=== PATIENT | female | born 1985 | race Caucasian/White ===

== ENCOUNTER → 2018-06-10 | Outpatient (CLI) | payer OTHER ==
[~2018-06-10] MED LIST: CYCL10 PO; DOCU100 PO; FERR325 PO; Naprosyn500 MG PO; Verotin-Gr Cap1 EACH PO
[2018-06-13 04:06] LABS: CHLAMYDIA TRACHOMATIS, NAA Negative (Negative); NEISSERIA GONORRHOEAE, NAA Negative (Negative)
[2018-06-14 15:07] LABS: HPV 16 Negative (Negative); HPV 18 Negative (Negative); HPV OTHER HR TYPES Negative (Negative)
== END ==
LOC: LAB SHORT 11:44 → LAB 11:44
PROVIDERS: Registered Nurse Community Health
DX: Z12.4 Encounter for screening for malignant neoplasm of cervix (principal); Z11.3 Encounter for screening for infections with a predominantly sexual mode of transmission; N89.8 Other specified noninflammatory disorders of vagina
CPT/HCPCS: 87070; 87106; 87205; 87491; 87591; 87625; G0123

== ENCOUNTER → 2018-12-28 | Outpatient (CLI) | payer OTHER ==
[~2018-12-28] MED LIST changes: +IBUP800 PO; +PRENATAL TABLE1 EAC2 PO
== END ==
LOC: LAB 15:15 → LAB SHORT 15:15
DX: Z34.93 Encounter for supervision of normal pregnancy, unspecified, third trimester (principal)
CPT/HCPCS: 87081; 87653

== ENCOUNTER 2019-01-18 05:00 | Inpatient (IN) | payer OTHER ==
[~2019-01-18] VITALS: Ht 157.5 cm; Wt 74.5 kg
[~2019-01-18 05:00] MED LIST changes: -IBUP800 PO; -PRENATAL TABLE1 EAC2 PO
[2019-01-18] MEDS ORDERED: PRENATAL TABLE1 EAC2 PO (05:24)
[2019-01-18 06:08] LABS: BASOPHILS ABSOLUTE AUTO 0.02 K/mm3 (0.00-0.23); BASOPHILS PERCENT AUTO 0 % (0-2); EOSINOPHILS ABSOLUTE AUTO 0.14 K/mm3 (0.00-0.68); EOSINOPHILS PERCENT AUTO 2 % (0-6); Hemoglobin 11.6 g/dL (11.5-16.0); IMMATURE GRAN ABSOLUTE AUTO 0.07 K/mm3 (0.00-0.10); IMMATURE GRAN PERCENT AUTO 1 % (0-1); LYMPHOCYTES ABSOLUTE AUTO 1.68 K/mm3 (0.84-5.20); LYMPHOCYTES PERCENT AUTO 19 % (21-46); MONOCYTES ABSOLUTE AUTO 0.67 K/mm3 (0.16-1.47); MONOCYTES PERCENT AUTO 8 % (4-13); Mean Corpuscular HGB 26.7 pg (26.0-34.0); Mean Corpuscular HGB Conc 32.2 g/dL (31.5-36.5); Mean Corpuscular Volume 83 fL (80-100); Mean Platelet Volume 11.6 fL (9.1-12.4); NEUTROPHILS ABSOLUTE AUTO 6.23 K/mm3 (1.96-9.15); NEUTROPHILS PERCENT AUTO 71 % (41-73); Platelet Count 218 K/mm3 (150-400); RDW Coefficient Variation 14.7 % (11.7-14.2); RDW Standard Deviation 43.2 fL (35.1-46.3); Red Blood Cell Count 4.34 M/mm3 (3.80-5.20); White Blood Cell Count 8.81 K/mm3 (4.00-11.30)
--- NOTE | 2019-01-18 08:00 | NUR ---
ASSUMED CARE AT 0715. PT IN ROOM AWAITING DENNY SIMPSON TO COME TO BREAK WATER. PT'S SO MOM IN ROOM, "LEIGH ANN". PT'S SO NAME IS GRETCHEN, HE IS HOME WITH THIER 4 YEAR OLD SON. THIS GESTATION IS COMPLICATED BY FOCAL MOSIAC TRISOMY 7. PT ALSO HAD A TAB IN 2012 FOR TRISOMY 18.
--- NOTE | 2019-01-18 09:45 | NUR ---
CONSULT. SHE IS IN LABOR, HAS QUESTIONS ABOUT MILK SUPPLY. LAST BABY IT TOOK OVER 2 WEEKS FOR HER SUPPLY TO COME IN WELL AND SHE HAS ACCESSORY GLANDS UP INTO BOTH AXILLA, WHICH DO DRAIN WITH BF. INSTRUCT THAT THE AXILLA AREA WILL PROBABLY FILL WITH MILK AGAIN, EACH IS DIFFERENT ON HOW THE MILK COMES IN AND HOW MUCH SUPPLY. THE MORE THE BREASTS ARE STIMULATED, THE GREATER THE CHANCE OF MILK IN SOONER AND IN GREATER SUPPLY. TO TRY AND HAVE BABY BF SOON AFTER , PREFERRABLY ABOUT AN HOUR. TO START PUMPING PC FOR 15 MINUTES AFTER THAT FOR ADDED STIMULATION. PLANS TO BRING PUMP FROM HOME, HAS A SPECTRA.
--- NOTE | 2019-01-18 11:21 | NUR ---
KIMI IN TO DISCUSS PLAN OF BRF. PT HAS ACCESSORY MAMMARY GLADS IN BILATERAL [place]. PT REPORTS NOT GETTING MILK IN FOR 10-14 DAYS. PLAN TO PUMP Q3-4 HOURS FOR 15 MIN AFTER FEEDING NB FOR SIMULATION TO GET MILK PRODUCTION GOING. ACCESSORY GLANDS DID PRODUCE MILK, AND ARE CONNECTED TO BREAST TISSUE PER PT, IF SHE PUMPED THEM ENGORGEMENT WENT DONE WELL. PARRISH BOLDEN RN ROUNDED AND MADE A PLAN WITH THE PT.
--- NOTE | 2019-01-18 18:56 | NUR ---
REPORT TO ONCOMING SHIFT, PT STILL IN BED, NOT UP YET. CONT TO [facility]F NB. CNM ASKED THAT 2 RNS IN ROOM WHEN PT UPT SHOWER.
[2019-01-19 05:33] LABS: BASOPHILS ABSOLUTE AUTO 0.01 K/mm3 (0.00-0.23); BASOPHILS PERCENT AUTO 0 % (0-2); EOSINOPHILS ABSOLUTE AUTO 0.15 K/mm3 (0.00-0.68); EOSINOPHILS PERCENT AUTO 1 % (0-6); Hematocrit 30.8 % (33.0-51.0); IMMATURE GRAN PERCENT AUTO 1 % (0-1); LYMPHOCYTES ABSOLUTE AUTO 1.55 K/mm3 (0.84-5.20); LYMPHOCYTES PERCENT AUTO 13 % (21-46); MONOCYTES ABSOLUTE AUTO 0.91 K/mm3 (0.16-1.47); MONOCYTES PERCENT AUTO 7 % (4-13); Mean Corpuscular HGB 27.6 pg (26.0-34.0); Mean Corpuscular HGB Conc 32.5 g/dL (31.5-36.5); Mean Corpuscular Volume 85 fL (80-100); Mean Platelet Volume 11.1 fL (9.1-12.4); NEUTROPHILS ABSOLUTE AUTO 9.66 K/mm3 (1.96-9.15); NEUTROPHILS PERCENT AUTO 78 % (41-73); Platelet Count 178 K/mm3 (150-400); RDW Coefficient Variation 14.9 % (11.7-14.2); RDW Standard Deviation 45.1 fL (35.1-46.3); Red Blood Cell Count 3.62 M/mm3 (3.80-5.20); White Blood Cell Count 12.38 K/mm3 (4.00-11.30)
[2019-01-19] MEDS ORDERED: IBUP800 PO (10:06)
--- NOTE | 2019-01-19 18:40 | NUR ---
DISCHARGE INSTRUCTIONS REVIEWED WITH MOTHER OF BABY. MOM VERBALIZED UNDERSTANDING, DENIES ANY QUESTIONS OR CONCERNS. VSS. BANDS MATCHED. BABY DISCHARGED HOME WITH MOM.
== END 2019-01-19 18:40 | disposition home or self-care (01) | DRG 807 ==
LOC: BC 05:00
PROVIDERS: ADMIT Registered Nurse Community Health
PROC: 10E0XZZ Delivery of Products of Conception, External Approach (ICD-10-PCS; principal; 2019-01-18)
PROC: 10907ZC Drainage of Amniotic Fluid, Therapeutic from Products of Conception, Via Natural or Artificial Opening (ICD-10-PCS; 2019-01-18)
DX: O35.1XX0 Maternal care for (suspected) chromosomal abnormality in fetus, not applicable or unspecified (principal); Z37.0 Single live birth; Z3A.39 39 weeks gestation of pregnancy
CPT/HCPCS: 36415; 51702; 85025; J1885; J2210; J2590; J3010; J7120

== ENCOUNTER → 2019-06-20 | Outpatient (CLI) | payer OTHER ==
[~2019-06-20] MED LIST changes: +IBUP800 PO; +PRENATAL TABLE1 EAC2 PO
[2019-06-20 14:57] LABS: BASOPHILS ABSOLUTE AUTO 0.02 K/mm3 (0.00-0.23); BASOPHILS PERCENT AUTO 0 % (0-2); EOSINOPHILS ABSOLUTE AUTO 0.33 K/mm3 (0.00-0.68); EOSINOPHILS PERCENT AUTO 6 % (0-6); Hematocrit 40.8 % (33.0-51.0); Hemoglobin 13.3 g/dL (11.5-16.0); IMMATURE GRAN PERCENT AUTO 0 % (0-1); LYMPHOCYTES ABSOLUTE AUTO 1.54 K/mm3 (0.84-5.20); LYMPHOCYTES PERCENT AUTO 29 % (21-46); MONOCYTES ABSOLUTE AUTO 0.35 K/mm3 (0.16-1.47); MONOCYTES PERCENT AUTO 7 % (4-13); Mean Corpuscular HGB 28.7 pg (26.0-34.0); Mean Corpuscular HGB Conc 32.6 g/dL (31.5-36.5); Mean Corpuscular Volume 88 fL (80-100); NEUTROPHILS ABSOLUTE AUTO 3.13 K/mm3 (1.96-9.15); NEUTROPHILS PERCENT AUTO 58 % (41-73); Platelet Count 216 K/mm3 (150-400); Red Blood Cell Count 4.64 M/mm3 (3.80-5.20); White Blood Cell Count 5.37 K/mm3 (4.00-11.30)
== END ==
LOC: LAB SHORT 13:17 → LAB 13:17
PROVIDERS: Registered Nurse Community Health
DX: J30.2 Other seasonal allergic rhinitis (principal); J31.1 Chronic nasopharyngitis; R51 Headache
CPT/HCPCS: 85025

== ENCOUNTER → 2020-07-09 | Outpatient (CLI) | payer OTHER ==
[2020-07-11 09:09] LABS: HPV 16 Negative (Negative); HPV 18 Negative (Negative); HPV OTHER HR TYPES Negative (Negative)
== END ==
LOC: LAB SHORT 09:40 → LAB 09:40
PROVIDERS: Family Medicine
DX: Z01.419 Encounter for gynecological examination (general) (routine) without abnormal findings (principal)
CPT/HCPCS: 87624; G0145

== ENCOUNTER → 2020-12-25 | Outpatient (CLI) | payer OTHER ==
[2020-12-27 04:11] LABS: CHLAMYDIA TRACHOMATIS, NAA Negative (Negative)
== END ==
LOC: LAB SHORT 11:01 → LAB 11:01
PROVIDERS: Registered Nurse Community Health
DX: O26.93 Pregnancy related conditions, unspecified, third trimester (principal)
CPT/HCPCS: 87491; 87591

== ENCOUNTER → 2021-03-27 | Outpatient (CLI) | payer OTHER ==
[2021-03-27 13:20] LABS: Hematocrit 34.6 % (33.0-51.0); Hemoglobin 11.8 g/dL (11.5-16.0)
== END ==
LOC: LAB SHORT 12:21
PROVIDERS: Registered Nurse Community Health
DX: O26.93 Pregnancy related conditions, unspecified, third trimester (principal)
CPT/HCPCS: 82950; 85014; 85018

== ENCOUNTER → 2021-05-09 | Outpatient (CLI) | payer OTHER | LOC: LAB 09:30 → LAB SHORT 09:30 | DX: Z34.83 Encounter for supervision of other normal pregnancy, third trimester (principal); Z23 Encounter for immunization; Z3A.36 36 weeks gestation of pregnancy | CPT/HCPCS: 87081; 87150 ==

== ENCOUNTER 2021-06-10 06:02 | Inpatient (IN) | payer OTHER ==
[~2021-06-10] VITALS: Ht 154.9 cm; Wt 72.0 kg
--- NOTE | 2021-06-10 08:50 | NUR ---
DAVID UPDATED, PATIENT ADMITTED
[2021-06-10 09:52] LABS: BASOPHILS ABSOLUTE AUTO 0.02 K/mm3 (0.00-0.23); BASOPHILS PERCENT AUTO 0 % (0-2); EOSINOPHILS ABSOLUTE AUTO 0.24 K/mm3 (0.00-0.68); EOSINOPHILS PERCENT AUTO 3 % (0-6); Hematocrit 39.3 % (33.0-51.0); Hemoglobin 13.2 g/dL (11.5-16.0); IMMATURE GRAN ABSOLUTE AUTO 0.14 K/mm3 (0.00-0.10); IMMATURE GRAN PERCENT AUTO 2 % (0-1); LYMPHOCYTES ABSOLUTE AUTO 1.34 K/mm3 (0.84-5.20); LYMPHOCYTES PERCENT AUTO 14 % (21-46); MONOCYTES ABSOLUTE AUTO 0.51 K/mm3 (0.16-1.47); MONOCYTES PERCENT AUTO 6 % (4-13); Mean Corpuscular HGB Conc 33.6 g/dL (31.5-36.5); Mean Corpuscular Volume 89 fL (80-100); Mean Platelet Volume 10.8 fL (9.1-12.4); NEUTROPHILS ABSOLUTE AUTO 7.03 K/mm3 (1.96-9.15); NEUTROPHILS PERCENT AUTO 76 % (41-73); Platelet Count 202 K/mm3 (150-400); RDW Coefficient Variation 13.6 % (11.7-14.2); RDW Standard Deviation 44.1 fL (35.1-46.3); White Blood Cell Count 9.28 K/mm3 (4.00-11.30)
--- NOTE | 2021-06-10 18:38 | NUR ---
ATTEMPTED TO GET UP TO VOID, RIGHT LEG STILL NUMB, PAD CHANGED, LINEN CHANGED WILL ATTEMPT AGAIN IN 1 HOUR,
--- NOTE | 2021-06-10 18:43 | NUR ---
UNABLE TO VOID AT THIS TIME, DID VOID SMALL AMOUNT [place] FUNDAL MASSAGE
[2021-06-11 05:54] LABS: Hematocrit 33.9 % (33.0-51.0); Hemoglobin 11.5 g/dL (11.5-16.0); Mean Corpuscular HGB 30.2 pg (26.0-34.0); Mean Corpuscular HGB Conc 33.9 g/dL (31.5-36.5); Mean Corpuscular Volume 89 fL (80-100); Mean Platelet Volume 10.7 fL (9.1-12.4); Platelet Count 172 K/mm3 (150-400); RDW Coefficient Variation 13.6 % (11.7-14.2); RDW Standard Deviation 44.3 fL (35.1-46.3); Red Blood Cell Count 3.81 M/mm3 (3.80-5.20); White Blood Cell Count 12.19 K/mm3 (4.00-11.30)
--- NOTE | 2021-06-11 09:05 | NUR ---
REPORT TAKEN FROM SKYLAR MAHONEY RN, ASSUMED CARE
--- NOTE | 2021-06-11 09:39 | NUR ---
PT ON PHONE, NOT DONE WITH BREAKFAST YET, FILLING OUT MENU STILL. DENIED ANY NEEDS WILL CALL FOR ANY NEEDS PER PT
--- NOTE | 2021-06-11 13:30 | NUR ---
assumed care of mom and baby. mom and baby aunt in room. mom declines mmr and will sign a decline consent for it. reports ok for nbs, tsb, chs, and hearing screen to be done on baby.
--- NOTE | 2021-06-11 13:35 | NUR ---
REPORT TO JOLENE EDGAR RN
--- NOTE | 2021-06-11 17:11 | NUR ---
DC INSTRUCTIONS GONE OVER, PT DENIES ANY QUESTIONS, CART IN ROOM. TO CALL WHEN READY TO MATCH BANDS, PLAN TO FEED BABY FIST, HAS PPFU MADE FOR THRUSDAY
== END 2021-06-11 18:06 | disposition home or self-care (01) | DRG 807 ==
LOC: OBS 06:02 → BC 06:03 → OBS 08:45 → BC 08:55
PROVIDERS: ADMIT Registered Nurse Community Health
PROC: 10E0XZZ Delivery of Products of Conception, External Approach (ICD-10-PCS; principal; 2021-06-10)
PROC: 10907ZC Drainage of Amniotic Fluid, Therapeutic from Products of Conception, Via Natural or Artificial Opening (ICD-10-PCS; 2021-06-10)
PROC: 3E0R3BZ Introduction of Anesthetic Agent into Spinal Canal, Percutaneous Approach (ICD-10-PCS; 2021-06-10)
PROC: 00HU33Z Insertion of Infusion Device into Spinal Canal, Percutaneous Approach (ICD-10-PCS; 2021-06-10)
DX: O80 Encounter for full-term uncomplicated delivery (principal); Z37.0 Single live birth; Z3A.40 40 weeks gestation of pregnancy; Z86.16 Personal history of COVID-19; Z79.899 Other long term (current) drug therapy
CPT/HCPCS: 36415; 51702; 85025; 85027; 86850; 86870; 86900; 86901; 86905; A9270; J1885; J2001; J2210; J3010; J7120

== ENCOUNTER → 2023-12-04 | Outpatient (CLI) | payer OTHER ==
[2023-12-04 15:04] LABS: BASOPHILS ABSOLUTE AUTO 0.01 K/mm3 (0.00-0.23); BASOPHILS PERCENT AUTO 0 % (0-2); EOSINOPHILS ABSOLUTE AUTO 0.12 K/mm3 (0.00-0.68); EOSINOPHILS PERCENT AUTO 2 % (0-6); Hematocrit 42.4 % (33.0-51.0); Hemoglobin 14.4 g/dL (11.5-16.0); IMMATURE GRAN ABSOLUTE AUTO 0.01 K/mm3 (0.00-0.10); IMMATURE GRAN PERCENT AUTO 0 % (0-1); LYMPHOCYTES ABSOLUTE AUTO 1.45 K/mm3 (0.84-5.20); LYMPHOCYTES PERCENT AUTO 27 % (21-46); MONOCYTES ABSOLUTE AUTO 0.36 K/mm3 (0.16-1.47); MONOCYTES PERCENT AUTO 7 % (4-13); Mean Corpuscular HGB 29.4 pg (26.0-34.0); Mean Corpuscular Volume 87 fL (80-100); Mean Platelet Volume 11.8 fL (9.1-12.4); NEUTROPHILS PERCENT AUTO 64 % (41-73); Platelet Count 238 K/mm3 (150-400); RDW Coefficient Variation 11.9 % (11.7-14.2); RDW Standard Deviation 37.9 fL (35.1-46.3); Red Blood Cell Count 4.89 M/mm3 (3.80-5.20); White Blood Cell Count 5.35 K/mm3 (4.00-11.30)
[2023-12-04 17:15] LABS: Alanine Aminotransfer (ALT/SGP 15 U/L (12-78); Albumin, Blood 4.2 g/dL (3.4-5.0); Albumin/Globulin Ratio 1.4 (0.8-1.8); Alk Phos 42 U/L (50-136); Anion Gap 12 mmol/L (3-11); Aspartate Aminotrans (AST/SGOT 16 U/L (12-37); Bilirubin, Total 0.8 mg/dL (0.1-1.0); Blood Urea Nitrogen 10 mg/dL (8-24); Bun/Creatinine Ratio 11.7 (12.0-20.0); CHOL/HDL RATIO 2.1; CO2, Blood 28 mmol/L (21-32); Calcium, Blood 9.7 mg/dL (8.5-10.1); Chloride, Blood 104 mmol/L (98-108); Cholesterol 180 mg/dL (50-200); Creatinine, Blood 0.86 mg/dL (0.40-1.00); Ferritin, Serum 51 ng/mL (8-252); Free Thyroxine 1.44 ng/dL (0.70-1.60); Globulin, Blood 3.1 g/dL (2.2-4.0); Glomerular Filtration Rate 89 (60-); Glucose, Blood 140 mg/dL (70-99); HDL Cholesterol 85 mg/dL (>39); Iron Serum 104 ug/dL (50-170); Low Density Lipoprotein Chol 88 mg/dL (0-110); Percent Saturation 33.5 % (15.0-50.0); Potassium, Blood 3.7 mmol/L (3.5-5.5); Sodium, Blood 140 mmol/L (136-145); Thyroid Stimulating Hormone 0.402 uIU/mL (0.360-4.800); Total Iron Binding Capacity 310 ug/dL (250-450); Total Protein, Blood 7.3 g/dL (6.4-8.2); Triglycerides 36 mg/dL (30-140); Very Low Density Lipoprot Chol 7 mg/dL (6-28)
== END ==
LOC: LAB 13:03 → LAB SHORT 13:03
PROVIDERS: General Practice
DX: E61.1 Iron deficiency (principal); R53.82 Chronic fatigue, unspecified; R63.4 Abnormal weight loss
CPT/HCPCS: 80053; 80061; 82306; 82607; 82728; 82746; 83540; 83550; 84439; 84443; 85025

== ENCOUNTER → 2024-06-08 | Outpatient (CLI) | payer OTHER | LOC: LAB SHORT 07:27 → LAB 07:27 → PLD 07:27 | DX: A63.0 Anogenital (venereal) warts (principal) | CPT/HCPCS: 88305 ==